=== PATIENT | female | born 1940 | race Caucasian/White ===

== ENCOUNTER 2017-05-08 06:16 | Emergency (ER) | payer MEDICARE ==
[~2017-05-08] VITALS: Ht 160 cm; Wt 84.0 kg
[~2017-05-08 06:16] MED LIST: BACL10TA PO; CEPH250C92 PO; HYDR-3964 PO; LISI-600 PO; LORA1TAB PO; OMEP-84 PO; SYN0.0125T PO
[2017-05-08] MEDS ORDERED: ipratropium/albuterol 3ml nebule NEB ONE (07:00)
[2017-05-08 07:06] LABS: BASOPHILS # (AUTO) 0.1 X10'3 (0-0.2); BASOPHILS % (AUTO) 0.6 % (0-1); EOSINOPHILS # (AUTO) 0.1 X10'3 (0-0.9); EOSINOPHILS % (AUTO) 0.9 % (0-6); HEMATOCRIT 42.8 % (35.0-45.0); HEMOGLOBIN 14.3 g/dl (12.0-16.0); LYMPHOCYTES # (AUTO) 1.1 X10'3 (1.1-4.8); LYMPHOCYTES % (AUTO) 14.2 % (21-51); MEAN CORPUSCULAR HGB CONC 33.5 % (33.0-36.5); MEAN CORPUSCULAR VOLUME 92.7 FL (78-98); MEAN PLATELET VOLUME 7.4 FL (7.4-10.4); MONOCYTES # (AUTO) 0.4 X10'3 (0-0.9); MONOCYTES % (AUTO) 4.6 % (2-12); NEUTROPHILS # (AUTO) 6.4 X10'3 (1.8-7.7); NEUTROPHILS % (AUTO) 79.7 % (42-75); PLATELET COUNT 250 X10'3 (140-440); RED BLOOD COUNT 4.62 X10'6 (4.20-5.60); RED CELL DISTRIBUTION WIDTH 13.1 % (11.5-14.5)
[2017-05-08 07:31] LABS: ALANINE AMINOTRANSFERASE 8 U/L (12-78); ALBUMIN 3.2 G/DL (3.4-5.0); ALBUMIN/GLOBULIN RATIO 0.7 (1.1-1.5); ALKALINE PHOSPHATASE 78 IU/L (46-116); ANION GAP 7 (8-16); ASPARTATE AMINO TRANSFERASE 20 U/L (10-37); BILIRUBIN,TOTAL 0.6 MG/DL (0.1-1.0); BLOOD UREA NITROGEN 11 MG/DL (7-18); BUN/CREATININE RATIO 15.5 (6.6-38.0); CALCIUM 8.7 MG/DL (8.5-10.1); CHLORIDE 104 MMOL/L (99-107); CREATININE 0.71 MG/DL (0.40-0.90); GLUCOSE 96 MG/DL (70-104); POTASSIUM 4.7 MMOL/L (3.5-5.1); SODIUM 138 MMOL/L (135-145); TOTAL PROTEIN 7.6 G/DL (6.4-8.2); eGFR 80 ML/MIN
[2017-05-08 07:37] LABS: MAGNESIUM 2.2 MG/DL (1.5-2.4)
[2017-05-08] MEDS ORDERED: GUAI-652 PO (09:17)
[2017-05-08 09:26] VITALS: BP 146/93
== END 2017-05-08 09:28 | disposition home or self-care (01) ==
LOC: ER 06:17
DX: R05 Cough (principal); R09.81 Nasal congestion; R07.89 Other chest pain; I10 Essential (primary) hypertension; K21.9 Gastro-esophageal reflux disease without esophagitis; G89.29 Other chronic pain; Z79.899 Other long term (current) drug therapy; Z88.0 Allergy status to penicillin; Z88.5 Allergy status to narcotic agent; Z88.8 Allergy status to other drugs, medicaments and biological substances
CPT/HCPCS: 36415; 71045; 80053; 83735; 83880; 84484; 85025; 87502; 87503; 93005; 99285

== ENCOUNTER 2018-01-09 12:22 | Inpatient (IN) | payer MEDICARE ==
[~2018-01-09] VITALS: Ht 162.6 cm; Wt 90.9 kg
[~2018-01-09 12:22] MED LIST changes: +GUAI-652 PO
[2018-01-09] MEDS ORDERED: normal saline 1000ML IV soln IVB ONE ×2 (13:10→15:05)
[2018-01-09] MEDS ORDERED: ondansetron/PF 4mg/2ml inj IV ONE (13:15)
[2018-01-09] MEDS ORDERED: acetaminophen 325mg tablet PO PRN (13:20)
[2018-01-09 13:35] LABS: BASOPHILS % (AUTO) 0.1 % (0-1); EOSINOPHILS % (AUTO) 0 % (0-6); HEMATOCRIT 39.9 % (35.0-45.0); HEMOGLOBIN 13.9 g/dl (12.0-16.0); LYMPHOCYTES # (AUTO) 0.5 X10'3 (1.1-4.8); LYMPHOCYTES % (AUTO) 4.4 % (21-51); MEAN CORPUSCULAR HEMOGLOBIN 31.6 PG (27.0-31.0); MEAN CORPUSCULAR VOLUME 90.3 FL (78-98); MEAN PLATELET VOLUME 8.1 FL (7.4-10.4); MONOCYTES # (AUTO) 0.7 X10'3 (0-0.9); MONOCYTES % (AUTO) 6.2 % (2-12); NEUTROPHILS # (AUTO) 10.5 X10'3 (1.8-7.7); NEUTROPHILS % (AUTO) 89.3 % (42-75); PLATELET COUNT 173 X10'3 (140-440); RED BLOOD COUNT 4.41 X10'6 (4.20-5.60); RED CELL DISTRIBUTION WIDTH 13.2 % (11.5-14.5); WHITE BLOOD COUNT 11.8 X10'3 (4.5-11.0)
[2018-01-09 13:46] LABS: INR 1.2 INR; PARTIAL THROMBOPLASTIN TIME 29 SECONDS (22-32); PROTHROMBIN TIME 11.9 SECONDS (9.0-12.0)
[2018-01-09] MEDS: acetaminophen 325mg tablet PO SCH ×2 (13:52→20:53)
[2018-01-09] MEDS ORDERED: acetaminophen 1,000mg/100ml IV 100 ML IV SCH (14:00)
[2018-01-09 14:03] LABS: PLATELET ESTIMATE NORMAL; TOTAL CELLS COUNTED 100
[2018-01-09] MEDS ORDERED: ipratropium/albuterol 3ml nebule NEB ONE (14:10)
[2018-01-09] MEDS ORDERED: levoFLOXACIN-Levaquin 750MG/D5 150 ML IV ONE (14:15)
[2018-01-09 14:20] LABS: CLARITY,URINE SLIGHTLY CLOUDY (Clear); COLOR,URINE YELLOW (Yellow); GLUCOSE, URINE NEGATIVE (Neg); KETONES,URINE NEGATIVE (Neg); LEUKOCYTE ESTERASE ,URINE MODERATE (Neg); NITRITES, URINE NEGATIVE (Neg); OCCULT BLOOD,URINE MODERATE (Neg); PROTEIN,URINE 30 mg/dl (Neg); UROBILINOGEN,URINE 0.2 E.U/dL (0.2-1.0)
[2018-01-09 14:24] LABS: UA COLLECTION TYPE STRAIGHT CATH
[2018-01-09 14:25] LABS: BACTERIA,URINE 4+ /HPF (Neg); MUCUS STRANDS FEW /LPF (Neg); RBC,URINE 0-2 /HPF (0-2); SQUAMOUS EPITHELIAL CELL,UR NONE SEEN /LPF (FEW); WBC,URINE 20-30 /HPF (0-4)
[2018-01-09 14:58] LABS: ALANINE AMINOTRANSFERASE 9 U/L (12-78); ALBUMIN 3.1 G/DL (3.4-5.0); ALBUMIN/GLOBULIN RATIO 0.8 (1.1-1.5); ALKALINE PHOSPHATASE 84 IU/L (46-116); ANION GAP 5 (8-16); ASPARTATE AMINO TRANSFERASE 24 U/L (10-37); BILIRUBIN,TOTAL 1.1 MG/DL (0.1-1.0); BLOOD UREA NITROGEN 22 MG/DL (7-18); BUN/CREATININE RATIO 18.5 (6.6-38.0); CALCIUM 7.9 MG/DL (8.5-10.1); CHLORIDE 87 MMOL/L (99-107); CREATININE 1.19 MG/DL (0.40-0.90); GLUCOSE 120 MG/DL (70-104); LIPASE 62 U/L (73-393); SODIUM 126 MMOL/L (135-145); TOTAL PROTEIN 6.8 G/DL (6.4-8.2); eGFR 44 ML/MIN
[2018-01-09 15:00] LABS: POTASSIUM 2.7 MMOL/L (3.5-5.1)
[2018-01-09] MEDS ORDERED: potassium Cl 20 mEq SR tablet PO ONE (15:00)
[2018-01-09] MEDS ORDERED: potassium 10mEq/100ml NS w/LIDOcaine (10mg/bag) IV ONE (15:00)
[2018-01-09] MEDS ORDERED: magnesium 1gm/100ml D5W IVPB 100 ML IV PRN (16:10)
[2018-01-09] MEDS ORDERED: magnesium Cl slow-release 64mg tablet PO PRN (16:10)
[2018-01-09] MEDS: K and/or MAG REPLACEMENT MC SCH (16:10)
[2018-01-09] MEDS ORDERED: potassium Cl 40MEQ/NS 500ml 500 ML IV PRN ×2 (16:10)
[2018-01-09] MEDS ORDERED: mag hydrox/Alum hydrox/simeth 30ml oral suspension PO PRN (16:10)
[2018-01-09] MEDS ORDERED: magnesium 4gm in 100ml NS 100 ML IV PRN (16:10)
[2018-01-09] MEDS ORDERED: potassium Cl 20 mEq SR tablet PO PRN ×2 (16:10)
[2018-01-09] MEDS ORDERED: ondansetron/PF 4mg/2ml inj IV PRN (16:10)
[2018-01-09] MEDS: enoxaparin 60mg/0.6ml syringe SUBCUT SCH (16:25)
[2018-01-09] MEDS ORDERED: CARB1TAB35 PO (16:32)
[2018-01-09] MEDS ORDERED: NORT50CA PO (16:32)
[2018-01-09] MEDS ORDERED: LEVO112T5 PO (16:32)
[2018-01-09] MEDS ORDERED: OMEP-50 PO (16:32)
[2018-01-09] MEDS ORDERED: [UNRECOGNIZED DRUG - CODE] PO (16:36)
[2018-01-09] MEDS ORDERED: MAGN500C16 PO (16:36)
[2018-01-09] MEDS ORDERED: DOCU100C41 PO (16:36)
[2018-01-09] MEDS ORDERED: CHOL10002 PO (16:36)
[2018-01-09] MEDS: enoxaparin 30mg/0.3ml syringe SUBCUT SCH (16:37)
[2018-01-09] MEDS: potassium Cl 20mEq in NS 1,000 ML IV SCH (16:38)
[2018-01-09] MEDS: CefTRIAXone/D5W-Rocephin 1gm 50 ML IV SCH (16:38)
[2018-01-09 18:29] LABS: OSMOLALITY UA 164 MOSM/K (50-1400)
[2018-01-09 18:32] LABS: SODIUM,URINE RANDOM < 15 MEQ/L
[2018-01-09 22:00] VITALS: BP 124/70
[2018-01-09] MEDS ORDERED: nortriptyline 25mg capsule PO ONE (23:15)
[2018-01-09] MEDS ORDERED: carbidoba-levodopa 25-100mg tablet PO ONE (23:35)
[2018-01-10 02:00] VITALS: BP 113/59
[2018-01-10] MEDS: acetaminophen 325mg tablet PO SCH (02:00)
[2018-01-10] MEDS: potassium Cl 20mEq in NS 1,000 ML IV SCH ×3 (02:09→22:49)
[2018-01-10] MEDS: enoxaparin 60mg/0.6ml syringe SUBCUT SCH ×3 (04:25→20:00)
[2018-01-10 05:00] VITALS: BP 148/70
[2018-01-10 06:46] LABS: BASOPHILS % (AUTO) 0 % (0-1); EOSINOPHILS % (AUTO) 0 % (0-6); HEMATOCRIT 39.9 % (35.0-45.0); HEMOGLOBIN 13.8 g/dl (12.0-16.0); LYMPHOCYTES # (AUTO) 0.6 X10'3 (1.1-4.8); LYMPHOCYTES % (AUTO) 8.1 % (21-51); MEAN CORPUSCULAR HEMOGLOBIN 31.5 PG (27.0-31.0); MEAN CORPUSCULAR HGB CONC 34.5 % (33.0-36.5); MEAN CORPUSCULAR VOLUME 91.4 FL (78-98); MEAN PLATELET VOLUME 8.3 FL (7.4-10.4); MONOCYTES # (AUTO) 0.4 X10'3 (0-0.9); NEUTROPHILS # (AUTO) 6.3 X10'3 (1.8-7.7); NEUTROPHILS % (AUTO) 85.9 % (42-75); PLATELET COUNT 143 X10'3 (140-440); RED BLOOD COUNT 4.37 X10'6 (4.20-5.60); RED CELL DISTRIBUTION WIDTH 13.3 % (11.5-14.5); WHITE BLOOD COUNT 7.3 X10'3 (4.5-11.0)
[2018-01-10 07:18] LABS: ALBUMIN 2.6 G/DL (3.4-5.0); ANION GAP 1 (8-16); BLOOD UREA NITROGEN 15 MG/DL (7-18); BUN/CREATININE RATIO 13.9 (6.6-38.0); CALCIUM 7.7 MG/DL (8.5-10.1); CHLORIDE 98 MMOL/L (99-107); CREATININE 1.08 MG/DL (0.40-0.90); GLUCOSE 94 MG/DL (70-104); MAGNESIUM 2.2 MG/DL (1.5-2.4); POTASSIUM 3.5 MMOL/L (3.5-5.1); SODIUM 133 MMOL/L (135-145); TOTAL CARBON DIOXIDE 34.2 MMOL/L (24-32); eGFR 49 ML/MIN
[2018-01-10] MEDS ORDERED: enoxaparin 40mg/0.4ml syringe SUBCUT SCH (08:00)
[2018-01-10] MEDS: K and/or MAG REPLACEMENT MC SCH (08:00)
[2018-01-10] MEDS: carbidoba-levodopa 25-100mg tablet PO SCH ×4 (08:50→21:08)
[2018-01-10] MEDS: CefTRIAXone/D5W-Rocephin 1gm 50 ML IV SCH (08:51)
[2018-01-10] MEDS: enoxaparin 30mg/0.3ml syringe SUBCUT SCH ×2 (09:32→20:00)
[2018-01-10 10:00] VITALS: BP 115/49
[2018-01-10] MEDS: azithromycin/NS 500mg/250ml 250 ML IV SCH (14:25)
[2018-01-10] MEDS: acetaminophen 325mg tablet PO PRN (17:09)
[2018-01-10 18:00] VITALS: BP 120/43
[2018-01-10] MEDS: nortriptyline 25mg capsule PO SCH (21:38)
[2018-01-10 22:00] VITALS: BP 108/47
[2018-01-11 06:00] VITALS: BP 152/88
[2018-01-11 07:34] LABS: BASOPHILS % (AUTO) 0.1 % (0-1); EOSINOPHILS % (AUTO) 0.3 % (0-6); HEMATOCRIT 37.2 % (35.0-45.0); LYMPHOCYTES # (AUTO) 0.9 X10'3 (1.1-4.8); LYMPHOCYTES % (AUTO) 12.1 % (21-51); MEAN CORPUSCULAR HEMOGLOBIN 31.6 PG (27.0-31.0); MEAN CORPUSCULAR VOLUME 90.5 FL (78-98); MEAN PLATELET VOLUME 8.2 FL (7.4-10.4); MONOCYTES # (AUTO) 0.7 X10'3 (0-0.9); MONOCYTES % (AUTO) 8.8 % (2-12); NEUTROPHILS # (AUTO) 5.9 X10'3 (1.8-7.7); NEUTROPHILS % (AUTO) 78.7 % (42-75); PLATELET COUNT 141 X10'3 (140-440); RED BLOOD COUNT 4.11 X10'6 (4.20-5.60); RED CELL DISTRIBUTION WIDTH 13.4 % (11.5-14.5); WHITE BLOOD COUNT 7.5 X10'3 (4.5-11.0)
[2018-01-11] MEDS: K and/or MAG REPLACEMENT MC SCH (08:00)
[2018-01-11 08:55] LABS: ALBUMIN 2.3 G/DL (3.4-5.0); ANION GAP 7 (8-16); BLOOD UREA NITROGEN 11 MG/DL (7-18); BUN/CREATININE RATIO 12.6 (6.6-38.0); CALCIUM 7.7 MG/DL (8.5-10.1); CHLORIDE 101 MMOL/L (99-107); CREATININE 0.87 MG/DL (0.40-0.90); GLUCOSE 92 MG/DL (70-104); MAGNESIUM 1.9 MG/DL (1.5-2.4); POTASSIUM 4.1 MMOL/L (3.5-5.1); SODIUM 135 MMOL/L (135-145); TOTAL CARBON DIOXIDE 27.5 MMOL/L (24-32); eGFR 63 ML/MIN
[2018-01-11 10:00] VITALS: BP 110/58
[2018-01-11] MEDS: carbidoba-levodopa 25-100mg tablet PO SCH ×4 (10:00→20:08)
[2018-01-11] MEDS: CefTRIAXone/D5W-Rocephin 1gm 50 ML IV SCH (10:00)
[2018-01-11] MEDS: enoxaparin 30mg/0.3ml syringe SUBCUT SCH ×4 (10:01→20:14)
[2018-01-11] MEDS: enoxaparin 60mg/0.6ml syringe SUBCUT SCH ×4 (10:01→20:14)
[2018-01-11] MEDS: potassium Cl 20mEq in NS 1,000 ML IV SCH ×2 (11:08→22:01)
[2018-01-11] MEDS: azithromycin/NS 500mg/250ml 250 ML IV SCH (11:08)
[2018-01-11 18:00] VITALS: BP 117/64
[2018-01-11] MEDS: nortriptyline 25mg capsule PO SCH (20:08)
[2018-01-11] MEDS: lactobacillus rhamnosus 10,000 MMU CELLS/CAPSULE PO SCH (20:08)
[2018-01-11 22:00] VITALS: BP 109/59
[2018-01-12] MEDS: acetaminophen 325mg tablet PO PRN (01:59)
[2018-01-12 06:06] LABS: BASOPHILS % (AUTO) 0.4 % (0-1); EOSINOPHILS # (AUTO) 0.2 X10'3 (0-0.9); EOSINOPHILS % (AUTO) 2.3 % (0-6); HEMATOCRIT 35.5 % (35.0-45.0); LYMPHOCYTES # (AUTO) 1.4 X10'3 (1.1-4.8); LYMPHOCYTES % (AUTO) 20.1 % (21-51); MEAN CORPUSCULAR HEMOGLOBIN 31.3 PG (27.0-31.0); MEAN CORPUSCULAR HGB CONC 33.9 % (33.0-36.5); MEAN CORPUSCULAR VOLUME 92.3 FL (78-98); MEAN PLATELET VOLUME 8.3 FL (7.4-10.4); MONOCYTES # (AUTO) 0.8 X10'3 (0-0.9); MONOCYTES % (AUTO) 11.2 % (2-12); NEUTROPHILS # (AUTO) 4.4 X10'3 (1.8-7.7); PLATELET COUNT 151 X10'3 (140-440); RED BLOOD COUNT 3.85 X10'6 (4.20-5.60); RED CELL DISTRIBUTION WIDTH 13.7 % (11.5-14.5); WHITE BLOOD COUNT 6.7 X10'3 (4.5-11.0)
[2018-01-12 06:41] LABS: ALBUMIN 2.1 G/DL (3.4-5.0); ANION GAP 6 (8-16); BLOOD UREA NITROGEN 8 MG/DL (7-18); CALCIUM 7.9 MG/DL (8.5-10.1); CHLORIDE 105 MMOL/L (99-107); CREATININE 0.89 MG/DL (0.40-0.90); GLUCOSE 78 MG/DL (70-104); MAGNESIUM 2.1 MG/DL (1.5-2.4); SODIUM 138 MMOL/L (135-145); TOTAL CARBON DIOXIDE 27.5 MMOL/L (24-32); eGFR 62 ML/MIN
[2018-01-12 07:04] VITALS: BP 108/52
[2018-01-12] MEDS: azithromycin/NS 500mg/250ml 250 ML IV SCH (07:38)
[2018-01-12] MEDS: carbidoba-levodopa 25-100mg tablet PO SCH ×3 (07:38→17:30)
[2018-01-12] MEDS: potassium Cl 20mEq in NS 1,000 ML IV SCH (07:39)
[2018-01-12] MEDS: lactobacillus rhamnosus 10,000 MMU CELLS/CAPSULE PO SCH (07:41)
[2018-01-12] MEDS: enoxaparin 30mg/0.3ml syringe SUBCUT SCH (07:52)
[2018-01-12] MEDS: K and/or MAG REPLACEMENT MC SCH (08:00)
[2018-01-12] MEDS: CefTRIAXone/D5W-Rocephin 1gm 50 ML IV SCH (08:00)
[2018-01-12 10:00] VITALS: BP 114/71
[2018-01-12] MEDS ORDERED: LEVO500T2 PO (14:30)
[2018-01-12 18:30] VITALS: BP 119/57
== END 2018-01-12 19:30 | disposition home health service (06) | DRG 871 ==
LOC: ER 12:22 → ED HOLD 16:09 → ORTHO 4S 22:06
PROVIDERS: ADMIT Internal Medicine; ATTEND Family Medicine
PROC: CB121ZZ Planar Nuclear Medicine Imaging of Lungs and Bronchi using Technetium 99m (Tc-99m) (ICD-10-PCS; principal; 2018-01-10)
DX: A41.9 Sepsis, unspecified organism (principal); J96.01 Acute respiratory failure with hypoxia; J18.9 Pneumonia, unspecified organism; N39.0 Urinary tract infection, site not specified; E87.1 Hypo-osmolality and hyponatremia; N17.9 Acute kidney failure, unspecified; E86.0 Dehydration; B96.89 Other specified bacterial agents as the cause of diseases classified elsewhere; E87.6 Hypokalemia; G20 Parkinson's disease; G89.4 Chronic pain syndrome; I10 Essential (primary) hypertension; K21.9 Gastro-esophageal reflux disease without esophagitis; R19.7 Diarrhea, unspecified; G62.9 Polyneuropathy, unspecified; Z66 Do not resuscitate; B96.20 Unspecified Escherichia coli [E. coli] as the cause of diseases classified elsewhere; Z99.3 Dependence on wheelchair; Z90.710 Acquired absence of both cervix and uterus; Z91.013 Allergy to seafood; Z88.6 Allergy status to analgesic agent; Z88.1 Allergy status to other antibiotic agents; Z88.8 Allergy status to other drugs, medicaments and biological substances; Z79.899 Other long term (current) drug therapy
CPT/HCPCS: 36415; 71045; 78582; 80048; 80053; 81001; 83605; 83690; 83735; 83930; 83935; 84132; 84145; 84300; 85025; 85379; 85610; 85730; 87040; 87070; 87077; 87088; 87186; 93005; 94640; 96361; 96374; 96375; 97110; 97116; 97161; 97530; 99285; A4310; A4353; A6213; A6257; A9539; A9540; J0456; J0696; J1650; J1956; J2405; J3480; J7030

== ENCOUNTER 2019-06-12 17:18 | Emergency (ER) | payer MEDICARE ==
[~2019-06-12] VITALS: Ht 160 cm; Wt 86.4 kg
[~2019-06-12 17:18] MED LIST changes: -BACL10TA PO; +CARB1TAB35 PO; -CEPH250C92 PO; +CHOL10002 PO; +DOCU100C41 PO; -GUAI-652 PO; -HYDR-3964 PO; +LEVO112T5 PO; -LISI-600 PO; -LORA1TAB PO; +MAGN500C16 PO; +NORT50CA PO; +OMEP-50 PO; -OMEP-84 PO; -SYN0.0125T PO
[2019-06-12] MEDS ORDERED: acetaminophen 325mg tablet PO ONE (17:55)
[2019-06-12] MEDS ORDERED: HYDROcodone/acetaminophen 5mg/325mg tablet PO ONE (19:55)
[2019-06-12] MEDS ORDERED: HYDR-4383 PO (20:32)
--- NOTE | 2019-06-12 21:42 | NUR ---
CALLED [facility] AT 2144. ETA 30 MINS
[2019-06-12 22:19] VITALS: BP 167/97
== END 2019-06-12 22:21 | disposition home or self-care (01) ==
LOC: ER 17:18
DX: S39.012A Strain of muscle, fascia and tendon of lower back, initial encounter (principal); I10 Essential (primary) hypertension; K21.9 Gastro-esophageal reflux disease without esophagitis; G89.29 Other chronic pain; Z90.710 Acquired absence of both cervix and uterus; Z98.890 Other specified postprocedural states; Z88.1 Allergy status to other antibiotic agents; Z88.5 Allergy status to narcotic agent; Z91.013 Allergy to seafood; W01.0XXA Fall on same level from slipping, tripping and stumbling without subsequent striking against object, initial encounter; Y93.89 Activity, other specified; Y92.89 Other specified places as the place of occurrence of the external cause; Y99.8 Other external cause status
CPT/HCPCS: 72100; 99284

== ENCOUNTER 2019-10-20 05:39 | Emergency (ER) | payer MEDICARE, MEDICAID ==
[~2019-10-20] VITALS: Ht 160 cm; Wt 90.0 kg
[~2019-10-20 05:39] MED LIST changes: +HYDR-4383 PO
[2019-10-20] MEDS ORDERED: normal saline 1000ml 1,000 ML IV ONE ×2 (05:52→07:52)
--- NOTE | 2019-10-20 06:14 | NUR ---
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 Her apical pulse is 80. Pt denies chest pain or SOB. Dr. Martin looked at EKG soon as it was performed.
[2019-10-20 06:34] LABS: ALANINE AMINOTRANSFERASE 15 U/L (12-78); ALBUMIN 3.8 G/DL (3.4-5.0); ALBUMIN/GLOBULIN RATIO 1.3 (1.1-1.5); ALKALINE PHOSPHATASE 64 IU/L (46-116); ANION GAP 7 (8-16); ASPARTATE AMINO TRANSFERASE 19 U/L (10-37); BLOOD UREA NITROGEN 11 MG/DL (7-18); BUN/CREATININE RATIO 12.8 (6.6-38.0); CALCIUM 8.9 MG/DL (8.5-10.1); CHLORIDE 109 MMOL/L (99-107); CREATININE 0.86 MG/DL (0.40-0.90); GLUCOSE 79 MG/DL (70-104); LIPASE 62 U/L (73-393); MAGNESIUM 2.2 MG/DL (1.5-2.4); SODIUM 145 MMOL/L (135-145); TOTAL CARBON DIOXIDE 29.2 MMOL/L (24-32); TOTAL PROTEIN 6.7 G/DL (6.4-8.2); eGFR 64 ML/MIN
--- NOTE | 2019-10-20 07:11 | NUR ---
HYGIENE PROVIDED AT THIS TIME, PATIENT STATES [facility] SHE IS FROM DOES NOT CHANGE HER OVER NIGHT FOR 12 HRS. PATIENT FOUND WITH ADULT DIAPER X2 AND X2 MAXI PADS SOAKED IN URINE, PATIENT CLEANED, LINEN AND GOWN CHANGE PROVIDED, PATIENT UNABLE TO ASSIST WITH REPOSITIONING AND TURNING, REPOSITIONED FOR COMFORT.
--- NOTE | 2019-10-20 07:13 | NUR ---
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
--- NOTE | 2019-10-20 07:14 | NUR ---
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
[2019-10-20 07:31] LABS: BASOPHILS % (AUTO) 0.7 % (0-1); EOSINOPHILS # (AUTO) 0.1 X10'3 (0-0.9); HEMATOCRIT 44.5 % (35.0-45.0); HEMOGLOBIN 14.8 g/dl (12.0-16.0); LYMPHOCYTES # (AUTO) 1.6 X10'3 (1.1-4.8); LYMPHOCYTES % (AUTO) 28.5 % (21-51); MEAN CORPUSCULAR HEMOGLOBIN 31.4 PG (27.0-31.0); MEAN CORPUSCULAR HGB CONC 33.2 g/dL (33.0-36.5); MEAN CORPUSCULAR VOLUME 94.4 FL (78-98); MEAN PLATELET VOLUME 8.2 FL (7.4-10.4); MONOCYTES # (AUTO) 0.4 X10'3 (0-0.9); MONOCYTES % (AUTO) 7.6 % (2-12); NEUTROPHILS # (AUTO) 3.4 X10'3 (1.8-7.7); NEUTROPHILS % (AUTO) 62.2 % (42-75); PLATELET COUNT 157 X10'3 (140-440); RED BLOOD COUNT 4.72 X10'6 (4.20-5.60); RED CELL DISTRIBUTION WIDTH 13.8 % (11.5-14.5); WHITE BLOOD COUNT 5.5 X10'3 (4.5-11.0)
[2019-10-20 07:33] LABS: CLARITY,URINE CLEAR (Clear); COLOR,URINE YELLOW (Yellow); GLUCOSE, URINE NEGATIVE (Neg); KETONES,URINE NEGATIVE (Neg); LEUKOCYTE ESTERASE ,URINE LARGE (Neg); NITRITES, URINE POSITIVE (Neg); OCCULT BLOOD,URINE TRACE-INTACT (Neg); PROTEIN,URINE NEGATIVE (Neg); UROBILINOGEN,URINE 0.2 E.U/dL (0.2-1.0)
[2019-10-20 07:42] LABS: UA COLLECTION TYPE STRAIGHT CATH
--- NOTE | 2019-10-20 07:43 | NUR ---
Pt c/o her back hurting, which she said is normal. Helped pt turn unto her left side and put a pillow behind her back.
[2019-10-20 07:45] LABS: SQUAMOUS EPITHELIAL CELL,UR FEW /LPF (FEW)
[2019-10-20] MEDS ORDERED: CefTRIAXone/D5W-Rocephin 1gm 50 ML IV ONE (07:45)
[2019-10-20 07:46] LABS: BACTERIA,URINE 3+ /HPF (Neg); WBC,URINE 50-100 /HPF (0-4)
[2019-10-20 07:48] LABS: TRANSITIONAL EPI CELLS,URINE FEW /HPF
[2019-10-20 07:50] LABS: WBC CLUMPS,URINE MANY /HPF (NEGATIVE)
[2019-10-20 07:51] LABS: AMORPHOUS PHOSPHATES 1+
[2019-10-20 07:53] LABS: PARTIAL THROMBOPLASTIN TIME 25 SECONDS (22-32)
[2019-10-20] MEDS ORDERED: normal saline 1000ML IV soln IVB ONE (07:55)
[2019-10-20] MEDS ORDERED: CEPH250T PO (09:24)
[2019-10-20 09:56] VITALS: BP 151/80
== END 2019-10-20 09:58 | disposition home or self-care (01) ==
LOC: ER 05:40
DX: N39.0 Urinary tract infection, site not specified (principal); R53.1 Weakness; R25.1 Tremor, unspecified; I45.81 Long QT syndrome; G20 Parkinson's disease; I10 Essential (primary) hypertension; K21.9 Gastro-esophageal reflux disease without esophagitis; G89.29 Other chronic pain; Z90.710 Acquired absence of both cervix and uterus; Z98.890 Other specified postprocedural states; Z88.5 Allergy status to narcotic agent; Z88.8 Allergy status to other drugs, medicaments and biological substances; Z79.899 Other long term (current) drug therapy
CPT/HCPCS: 36415; 71045; 80053; 81001; 83605; 83690; 83735; 84484; 85025; 85610; 85730; 87040; 87077; 87088; 87186; 93005; 96365; 99285; J0696; J7030